=== PATIENT | female | born 1970 | race African-American/Black ===

== ENCOUNTER 2021-02-02 08:33 | Emergency (ER) | payer OTHER ==
[2021-02-02 08:40] VITALS: BP 171/93; PULSE 85; TEMP 97.8; BMI 38.9
== END 2021-02-02 10:28 | disposition home or self-care (01) ==
LOC: JERFT 08:33
DX: S05.02XA Injury of conjunctiva and corneal abrasion without foreign body, left eye, initial encounter (principal)
CPT/HCPCS: 99284-25

== ENCOUNTER 2022-04-16 11:17 | Emergency (ER) | payer OTHER ==
[2022-04-16 11:31] VITALS: PULSE 85; TEMP 98.3; BMI 40.7
[2022-04-16 13:21] VITALS: BP 169/97
[2022-04-16] MEDS ORDERED: TETRACAINE 0.5% HCL 0.6ML DROPPER.BOTTLE OD ONE (13:25)
[2022-04-16] MEDS ORDERED: FLUORESCEIN NA 1 EA STRIP OD ONE (13:26)
[2022-04-16] MEDS ORDERED: FLUORESCEIN NA 1 EA STRIP ONE (13:38)
[2022-04-16] MEDS ORDERED: TETRACAINE 0.5% OPHTH SOLN 2 ML BOTTLE ONE (13:38)
== END 2022-04-16 15:03 | disposition home or self-care (01) ==
LOC: JER 11:17
DX: H57.89 Other specified disorders of eye and adnexa (principal)
CPT/HCPCS: 99283-25